=== PATIENT | male | born 1945 | race Caucasian/White ===

== ENCOUNTER 2018-05-19 11:47 | Emergency (ER) | payer MEDICARE, BC ==
[~2018-05-19] VITALS: Ht 177.8 cm; Wt 79.4 kg
[2018-05-19] MEDS ORDERED: COUMADIN 2.5MG2.5 M1 PO (12:04)
[2018-05-19] MEDS ORDERED: LISINOPRIL20 MG PO (12:05)
[2018-05-19] MEDS ORDERED: ASPIR 8181 MG PO (12:05)
[2018-05-19] MEDS ORDERED: LIPITOR10 MG PO (12:05)
[2018-05-19 13:01] LABS: INR 2.2; PROTIME 21.3 Seconds (9.20-11.50)
[2018-05-19] MEDS ORDERED: KEFLEX500 M1 PO (13:54)
[2018-05-19 14:49] VITALS: BP 128/83
== END 2018-05-19 14:50 | disposition home or self-care (01) ==
LOC: M.ERS 11:47
PROVIDERS: Nurse Practitioner Family
DX: S09.93XA Unspecified injury of face, initial encounter (principal); S80.01XA Contusion of right knee, initial encounter; V29.9XXA Motorcycle rider (driver) (passenger) injured in unspecified traffic accident, initial encounter; Y93.89 Activity, other specified; Y92.89 Other specified places as the place of occurrence of the external cause; Y99.8 Other external cause status; I48.91 Unspecified atrial fibrillation; Z90.49 Acquired absence of other specified parts of digestive tract

== ENCOUNTER → 2018-06-24 | Outpatient (CLI) | payer MEDICARE, BC ==
[~2018-06-24] MED LIST: ASPIR 8181 MG PO; COUMADIN 2.5MG2.5 M1 PO; KEFLEX500 M1 PO; LIPITOR10 MG PO; LISINOPRIL20 MG PO
== END ==
LOC: M.ULTRA 11:03
DX: N63.10 Unspecified lump in the right breast, unspecified quadrant (principal); I48.91 Unspecified atrial fibrillation; D17.9 Benign lipomatous neoplasm, unspecified; Z90.49 Acquired absence of other specified parts of digestive tract; Z72.89 Other problems related to lifestyle